=== PATIENT | male | born 2000 | race Caucasian/White ===

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

== ENCOUNTER 2022-03-04 08:43 | Observation (INO) | payer OTHER ==
--- OUTSIDE RECORDS SUMMARY | 2022-03-04 08:46 | XMS REPORT | Continuity of Care Document ---
:2000 Author Organization [facility] Address [address] [place] [address] [place] [id number] Care Team Providers Name Role Phone LAURIE Attending Clinician Unavailable LAURIE Admitting Clinician Unavailable Problems This patient has no known problems. Allergies, Adverse Reactions, Alerts This patient has no known allergies or adverse reactions. Medications This patient has no known medications. Procedures This patient has no known procedures. Encounters Start End Encounter Admission Attending Care Care Encounter Source Date/Time Date/Time Type Type Clinicians Facility Department ID 2022-01-18 2022-01-18 Outpatient NAMITA ROBBINS [id number] 04:52:00 04:52:00 HN [id number] da [facility] Program Results This patient has no known results.
[2022-03-04 09:26] LABS: Urine Blood Negative (Negative); Urine Glucose Negative (Negative); Urine Protein 1+ (Negative); Urine Specific Gravity >=1.030 (1.005-1.030); Urine pH 5.5 (5.0-7.0)
[2022-03-04] MEDS ORDERED: FAMOTIDINE 20 MG/2 ML VIAL IV ONE (09:29)
[2022-03-04] MEDS ORDERED: ONDANSETRON 4 MG/2 ML VIAL ONE (09:29)
[2022-03-04] MEDS ORDERED: NA CHLORIDE 0.9% 1,000 ML ONE (09:29)
[2022-03-04] MEDS ORDERED: FENTANYL CITR 100 MCG/2 ML ONE ×2 (09:29→18:13)
[2022-03-04 09:46] LABS: Absolute Lymphocytes (CBC) 2.3 K/uL (0.7-4.9); Hematocrit 40.7 % (39.6-49.0); Lymphocytes % 16.7 % (15.3-44.8); MCV 89.5 fL (80-100); RBC Red Blood Cell Count 4.55 M/uL (4.33-5.43)
[2022-03-04 10:04] LABS: SARS-CoV-2 Antigen Rapid Res Negative (Negative)
[2022-03-04 10:11] LABS: Albumin 4.5 g/dL (3.4-5.0); Bilirubin Total 0.6 mg/dL (0.2-1.0); Potassium 3.4 mmol/L (3.5-5.1); Protein, Total 7.8 g/dL (6.4-8.2)
--- NOTE | 2022-03-04 10:58 | RAD REPORT ---
EXAM DESCRIPTION: CT - Abdomen Pelvis W Contrast - 03/04/2022 10:36 am CLINICAL HISTORY: Abdominal pain COMPARISON: none. TECHNIQUE: Computed axial tomography of the abdomen pelvis was obtained. 100 cc Isovue-300 was admin istered intravenously. Oral contrast was not requested which limits evaluation of bowel and appendix All CT scans are performed using dose optimization technique as appropriate and may include automated exposure control or mA/KV adjustment according to patient size. FINDINGS: The liver, spleen, pancreas, adrenal and kidneys appear unremarkable. There is no evidence of diverticulitis. The appendix is enlarged and fluid-filled. Stranding within the adjacent fat. The appendix extends me dially from the cecum and then inferiorly. Small amount of ascites. IMPRESSION: Suppurative appendicitis
[2022-03-04] MEDS ORDERED: PIPERACIL/TAZO 3.375 GM VIAL IV ONE (11:35)
[2022-03-04] MEDS ORDERED: NA CHLORIDE 0.9% 100 ML ONE (11:35)
[2022-03-04] MEDS ORDERED: Ringers Lactate 1,000 ML IV ONE ×3 (11:35→20:06)
--- NOTE | 2022-03-04 12:25 | ER ---
Nurse's Notes [facility] Name: Vinicio Delgado Age: 21 yrs Sex: Male : 2000 Arrival Date: 03/04/2022 Time: 08:53 Bed 7 Private MD: Diagnosis: Unspecified acute appendicitis Presentation: 03/04 09:07 Chief complaint: Patient states: RLQ pain since 0030 this morning. Pt denies N/V/D. ld1 Coronavirus screen: At this time, the client does not indicate any symptoms associated with coronavirus-19. Ebola Screen: No symptoms or risks identified at this time. Initial Sepsis Screen: Does the patient meet any 2 criteria? No. Patient's initial sepsis screen is negative. Does the patient have a suspected source of infection? No. Patient's initial sepsis screen is negative. Risk Assessment: Do you want to hurt yourself or someone else? Patient reports no desire to harm self or others. Onset of symptoms was March 04, 2022. 09:07 Method Of Arrival: Ambulatory ld1 09:07 Acuity: CHIP 3 ld1 Triage Assessment: 09:08 General: Appears in no apparent distress. comfortable, Behavior is calm, cooperative, ld1 appropriate for age. Pain: Complains of pain in right lower quadrant Pain does not radiate. Pain currently is 4 out of 10 on a pain scale. at worst was 10 out of 10 on a pain scale. Quality of pain is described as sharp, shooting, Pain began suddenly, Is continuous. EENT: No signs and/or symptoms were reported regarding the EENT system. Neuro: Level of Consciousness is awake, alert, obeys commands, Oriented to person, place, time, situation. Cardiovascular: Capillary refill < 3 seconds Patient's skin is warm and dry. Respiratory: Airway is patent Respiratory effort is even, unlabored. GI: Abdomen is flat, non-distended, Reports lower abdominal pain, Patient currently denies diarrhea, nausea, vomiting. : No signs and/or symptoms were reported regarding the genitourinary system. Derm: No signs and/or symptoms reported regarding the dermatologic system. Musculoskeletal: No signs and/or symptoms reported regarding the musculoskeletal system. Historical: - Allergies: : No Known Allergies; ld1 - Home Meds: :08 None [Active]; ld1 - PMHx: 09:08 None; ld1 - PSHx: 09:08 None; ld1 - Immunization history:: Adult Immunizations up to date, Client reports having NOT received the Covid vaccine. - Social history:: Smoking status: Patient denies any tobacco usage or history of. Patient/guardian denies using alcohol. Screenin:10 Abuse screen: Denies threats or abuse. Denies injuries from another. Nutritional ld1 screening: No deficits noted. Tuberculosis screening: No symptoms or risk factors identified. Fall Risk None identified. Assessment: 09:10 Reassessment: See triage assessment. ld1 11:35 Reassessment: Patient appears in no apparent distress at this time. Patient and/or ld1 family updated on plan of care and expected duration. Pain level reassessed. Patient is alert, oriented x 3, equal unlabored respirations, skin warm/dry/pink. Patient denies pain at this time. Patient states feeling better. 17:11 GI: Bowel sounds present X 4 quads. Abd is soft Abdomen is tender to palpation in right ld1 lower quadrant. Vital Signs: 09:07 BP 124 / 71; Pulse 97; Resp 18; Temp 99.1(O); Pulse Ox 100% on R/A; Weight 65.77 kg; ld1 Height 6 ft. 0 in. (182.88 cm); Pain 4/10; 10:01 BP 113 / 63; Pulse 88; Resp 18; Pulse Ox 100% on R/A; Pain 0/10; ld1 11:35 BP 122 / 70; Pulse 80; Resp 18; Pulse Ox 100% on R/A; Pain 0/10; ld1 13:00 BP 116 / 67; Pulse 79; Resp 18; Pulse Ox 100% on R/A; Pain 0/10; ld1 13:35 BP 117 / 61; Pulse 62; Resp 18; Pulse Ox 99% on R/A; Pain 2/10; ld1 15:35 BP 120 / 52; Pulse 59; Resp 18; Pulse Ox 100% on R/A; ld1 09:07 Body Mass Index 19.67 (65.77 kg, 182.88 cm) ld1 ED Course: 08:53 Patient arrived in ED. am2 08:55 Minda Liu FNP-C [facility]. snw 08:55 Ar Garsia MD is Attending Physician. snw 08:57 Stephanie Dominguez, CARLOS is Primary Nurse. ld1 09:08 Triage completed. ld1 09:08 Arm band placed on right wrist. ld1 09:09 Inserted saline lock: 20 gauge in right antecubital area, using aseptic technique. [id number] Blood collected. 09:10 No provider procedures requiring assistance completed. ld1 09:10 Patient has correct armband on for positive identification. Placed in gown. Bed in low ld1 position. Call light in reach. Side rails up X2. Pulse ox on. NIBP on. Door closed. Noise minimized. Warm blanket given. 09:30 SARS RAPID Sent. ld1 09:30 Strep Sent. ld1 10:37 CT Abd/Pelvis - IV Contrast Only In Process Unspecified. EDMS 12:23 Xavi Santamaria MD is Hospitalizing Provider. snw 17:13 Patient admitted, IV remains in place. ld1 Administered Medications: 09:30 Drug: NS 0.9% 1000 ml Route: IV; Rate: 1 bolus; Site: right antecubital; ld1 10:08 Follow up: Response: No adverse reaction; IV Intake: 1000ml ld1 09:30 Drug: Pepcid (famotidine) 20 mg Route: IVP; Site: right antecubital; ld1 10:08 Follow up: Response: No adverse reaction ld1 09:30 Drug: Zofran (Ondansetron) 4 mg Route: IVP; Site: right antecubital; ld1 10:08 Follow up: Response: No adverse reaction ld1 09:30 Drug: fentaNYL (PF) 25 mcg Route: IVP; Site: right antecubital; ld1 10:07 Follow up: Response: No adverse reaction ld1 10:07 Follow up: Response: Pain is decreased; RASS: Alert and Calm (0) ld1 11:33 Drug: Zosyn (piperacillin-tazobactam) 3.375 grams Route: IVPB; Infused Over: 60 mins; ld1 Site: right antecubital; 11:33 Drug: Lactated Ringers Solution 1000 ml Route: IV; Rate: 150 ml/hr; Site: right ld1 antecubital; Medication: 09:10 VIS not applicable for this client. ld1 Intake: 10:08 IV: 1000ml; Total: 1000ml. ld1 Outcome: 12:24 Decision to Hospitalize by Provider. snw 17:11 Admitted to OR accompanied by nurse, via wheelchair, with chart, Report called to Tereza ld1 17:11 Condition: stable 17:11 Instructed on the need for admit. 17:13 Patient left the ED. ld1 Signatures: Dispatcher [employer] EDMinda Aviles, ELISABET-C [employer] PROTECTION MANAGER-Csnw Anne Heath am2 Stephanie Dominguez, RN RN ld1 Carolyn Vega7
--- NOTE | 2022-03-04 12:25 | EDPHYS ---
Physician Documentation [facility] Name: Vinicio Delgado Age: 21 yrs Sex: Male : 2000 Arrival Date: 03/04/2022 Time: 08:53 Bed 7 Private MD: ED Physician Ar Garsia HPI: 03/04 09:57 This 21 yrs old Male presents to ER via Ambulatory with complaints of Abdominal Pain. snw 09:57 The patient presents with abdominal pain in the lower abdomen, right lower quadrant. snw Onset: The symptoms/episode began/occurred suddenly, at 00:00, and became worse and became persistent. The symptoms do not radiate. Associated signs and symptoms: Pertinent positives: nausea. The symptoms are described as constant. Severity of pain: At its worst the pain was moderate in the emergency department the pain is unchanged. The patient has experienced similar episodes in the past, but today's symptoms are worse, more painful. The patient has not recently seen a physician. 09:59 Pt denies smoking, no prior surgeries, NPO post MN. snw Historical: - Allergies: 09:08 No Known Allergies; ld1 - Home Meds: 09:08 None [Active]; ld1 - PMHx: 09:08 None; ld1 - PSHx: 09:08 None; ld1 - Immunization history:: Adult Immunizations up to date, Client reports having NOT received the Covid vaccine. - Social history:: Smoking status: Patient denies any tobacco usage or history of. Patient/guardian denies using alcohol. ROS: 09:56 Constitutional: Negative for fever, chills, and weight loss, Eyes: Negative for injury, snw pain, redness, and discharge, ENT: Negative for injury, pain, and discharge, Neck: Negative for injury, pain, and swelling, Cardiovascular: Negative for chest pain, palpitations, and edema, Respiratory: Negative for shortness of breath, cough, wheezing, and pleuritic chest pain, Back: Negative for injury and pain, : Negative for injury, bleeding, discharge, and swelling, MS/Extremity: Negative for injury and deformity, Skin: Negative for injury, rash, and discoloration, Neuro: Negative for headache, weakness, numbness, tingling, and seizure, Psych: Negative for depression, anxiety, suicide ideation, homicidal ideation, and hallucinations. 09:56 Abdomen/GI: Positive for abdominal pain, nausea, Negative for vomiting, diarrhea, constipation. Exam: 09:56 Back: No spinal tenderness. No costovertebral tenderness. Full range of motion. snw Skin: Warm, dry with normal turgor. Normal color with no rashes, no lesions, and no evidence of cellulitis. MS/ Extremity: Pulses equal, no cyanosis. Neurovascular intact. Full, normal range of motion. Neuro: Awake and alert, GCS 15, oriented to person, place, time, and situation. Cranial nerves II-XII grossly intact. Motor strength 5/5 in all extremities. Sensory grossly intact. Cerebellar exam normal. Normal gait. Psych: Awake, alert, with orientation to person, place and time. Behavior, mood, and affect are within normal limits. 09:56 Constitutional: This is a well developed, well nourished patient who is awake, alert, and in no acute distress. Head/Face: Normocephalic, atraumatic. Eyes: Pupils equal round and reactive to light, extra-ocular motions intact. Lids and lashes normal. Conjunctiva and sclera are non-icteric and not injected. Cornea within normal limits. Periorbital areas with no swelling, redness, or edema. ENT: Nares patent. No nasal discharge, no septal abnormalities noted. Tympanic membranes are normal and external auditory canals are clear. Oropharynx with redness, no swelling, or masses, exudates, or evidence of obstruction, uvula midline. Mucous membranes moist. Poor dentition Neck: Trachea midline, no thyromegaly or masses palpated, and no cervical lymphadenopathy. Supple, full range of motion without nuchal rigidity, or vertebral point tenderness. No Meningismus. Chest/axilla: Normal chest wall appearance and motion. Nontender with no deformity. No lesions are appreciated. Cardiovascular: Regular rate and rhythm with a normal S1 and S2. No gallops, murmurs, or rubs. Normal PMI, no JVD. No pulse deficits. Respiratory: Lungs have equal breath sounds bilaterally, clear to auscultation and percussion. No rales, rhonchi or wheezes noted. No increased work of breathing, no retractions or nasal flaring. 09:56 Abdomen/GI: Inspection: abdomen appears normal, Bowel sounds: diminished, Palpation: moderate abdominal tenderness, in the suprapubic area and right lower quadrant, Indicators: Magaña's sign is positive, Rovsing's sign is positive. Vital Signs: 09:07 BP 124 / 71; Pulse 97; Resp 18; Temp 99.1(O); Pulse Ox 100% on R/A; Weight 65.77 kg; ld1 Height 6 ft. 0 in. (182.88 cm); Pain 4/10; 10:01 BP 113 / 63; Pulse 88; Resp 18; Pulse Ox 100% on R/A; Pain 0/10; ld1 11:35 BP 122 / 70; Pulse 80; Resp 18; Pulse Ox 100% on R/A; Pain 0/10; ld1 13:00 BP 116 / 67; Pulse 79; Resp 18; Pulse Ox 100% on R/A; Pain 0/10; ld1 13:35 BP 117 / 61; Pulse 62; Resp 18; Pulse Ox 99% on R/A; Pain 2/10; ld1 15:35 BP 120 / 52; Pulse 59; Resp 18; Pulse Ox 100% on R/A; ld1 09:07 Body Mass Index 19.67 (65.77 kg, 182.88 cm) ld1 MDM: 08:56 Patient medically screened. snw 12:24 Data reviewed: vital signs, nurses notes. Data interpreted: Pulse oximetry: on room air snw is 100 %. Interpretation: normal. Counseling: I had a detailed discussion with the patient and/or guardian regarding: the historical points, exam findings, and any diagnostic results supporting the discharge/admit diagnosis, lab results, radiology results, the need for further work-up and treatment in the hospital. Physician consultation: Xavi Santamaria MD was called at 11:25, was contacted at 11:25, regarding admission, to the medical/surgical unit. Special discussion:. 03/04 09:15 Order name: CBC with Diff; Complete Time: 09:53 snw 03/04 09:15 Order name: CMP; Complete Time: 10:23 snw 03/04 09:15 Order name: Lipase; Complete Time: 10:23 snw 03/04 09:15 Order name: SARS RAPID; Complete Time: 10:23 snw 03/04 09:15 Order name: Strep; Complete Time: 10:23 snw 03/04 09:26 Order name: Urine Dipstick-Ancillary; Complete Time: 09:36 EDMS 03/04 09:15 Order name: CT Abd/Pelvis - IV Contrast Only; Complete Time: 11:16 snw 03/04 10:20 Order name: Throat Culture EDMS 03/04 09:15 Order name: IV Saline Lock; Complete Time: 09:16 snw 03/04 09:15 Order name: Labs collected and sent; Complete Time: 09:30 snw 03/04 09:15 Order name: Urine Dipstick-Ancillary (obtain specimen); Complete Time: 09:30 snw Administered Medications: 09:30 Drug: NS 0.9% 1000 ml Route: IV; Rate: 1 bolus; Site: right antecubital; ld1 10:08 Follow up: Response: No adverse reaction; IV Intake: 1000ml ld1 09:30 Drug: Pepcid (famotidine) 20 mg Route: IVP; Site: right antecubital; ld1 10:08 Follow up: Response: No adverse reaction ld1 09:30 Drug: Zofran (Ondansetron) 4 mg Route: IVP; Site: right antecubital; ld1 10:08 Follow up: Response: No adverse reaction ld1 09:30 Drug: fentaNYL (PF) 25 mcg Route: IVP; Site: right antecubital; ld1 10:07 Follow up: Response: No adverse reaction ld1 10:07 Follow up: Response: Pain is decreased; RASS: Alert and Calm (0) ld1 11:33 Drug: Zosyn (piperacillin-tazobactam) 3.375 grams Route: IVPB; Infused Over: 60 mins; ld1 Site: right antecubital; 11:33 Drug: Lactated Ringers Solution 1000 ml Route: IV; Rate: 150 ml/hr; Site: right ld1 antecubital; Disposition: 18:46 Co-signature as Attending Physician, Ar Garsia MD. rn Disposition Summary: 03/04/22 12:24 Hospitalization Ordered Hospitalization Status: Inpatient Admission snw Provider: Xavi Santamaria Location: Telemetry/MedSurg (observation) snw Condition: Stable snw Problem: new snw Symptoms: are unchanged snw Bed/Room Type: Standard snw Room Assignment: snw Diagnosis - Unspecified acute appendicitis snw Forms: - Medication Reconciliation Form snw - SBAR form snw Signatures: Dispatcher [employer] EDMS Minda Liu, MANAGER LEAN-C MANAGER LEAN-Csnw Ar Garsia MD MD rn Dibbern, Lauren, RN RN ld1 Corrections: (The following items were deleted from the chart) 09:57 09:56 Constitutional: This is a well developed, well nourished patient who is awake, snw alert, and in no acute distress. Head/Face: Normocephalic, atraumatic. Eyes: Pupils equal round and reactive to light, extra-ocular motions intact. Lids and lashes normal. Conjunctiva and sclera are non-icteric and not injected. Cornea within normal limits. Periorbital areas with no swelling, redness, or edema. ENT: Nares patent. No nasal discharge, no septal abnormalities noted. Tympanic membranes are normal and external auditory canals are clear. Oropharynx with no redness, swelling, or masses, exudates, or evidence of obstruction, uvula midline. Mucous membranes moist. Neck: Trachea midline, no thyromegaly or masses palpated, and no cervical lymphadenopathy. Supple, full range of motion without nuchal rigidity, or vertebral point tenderness. No Meningismus. Chest/axilla: Normal chest wall appearance and motion. Nontender with no deformity. No lesions are appreciated. Cardiovascular: Regular rate and rhythm with a normal S1 and S2. No gallops, murmurs, or rubs. Normal PMI, no JVD. No pulse deficits. Respiratory: Lungs have equal breath sounds bilaterally, clear to auscultation and percussion. No rales, rhonchi or wheezes noted. No increased work of breathing, no retractions or nasal flaring. snw 17:43 09:56 Constitutional: This is a well developed, well nourished patient who is awake, snw alert, and in no acute distress. Head/Face: Normocephalic, atraumatic. Eyes: Pupils equal round and reactive to light, extra-ocular motions intact. Lids and lashes normal. Conjunctiva and sclera are non-icteric and not injected. Cornea within normal limits. Periorbital areas with no swelling, redness, or edema. ENT: Nares patent. No nasal discharge, no septal abnormalities noted. Tympanic membranes are normal and external auditory canals are clear. Oropharynx with redness, no swelling, or masses, exudates, or evidence of obstruction, uvula midline. Mucous membranes moist. Neck: Trachea midline, no thyromegaly or masses palpated, and no cervical lymphadenopathy. Supple, full range of motion without nuchal rigidity, or vertebral point tenderness. No Meningismus. Chest/axilla: Normal chest wall appearance and motion. Nontender with no deformity. No lesions are appreciated. Cardiovascular: Regular rate and rhythm with a normal S1 and S2. No gallops, murmurs, or rubs. Normal PMI, no JVD. No pulse deficits. Respiratory: Lungs have equal breath sounds bilaterally, clear to auscultation and percussion. No rales, rhonchi or wheezes noted. No increased work of breathing, no retractions or nasal flaring. snw
[2022-03-04] MEDS ORDERED: ACETAMINOPHEN 500 MG TAB PO PRN (16:52)
[2022-03-04] MEDS ORDERED: ONDANSETRON 4 MG/2 ML VIAL IV PRN ×2 (16:52→19:55)
[2022-03-04] MEDS ORDERED: MORPHINE 4 MG/ML SYR IV PRN (16:52)
[2022-03-04] MEDS ORDERED: CEFOXITIN 1 GM in NA CHLORIDE 0.9% 50 ML IVPB SCH (18:00)
[2022-03-04] MEDS ORDERED: SUCCINYLCHOLINE 20 MG/ML (10 ML) IV ONE (18:11)
[2022-03-04] MEDS ORDERED: propofoL 200 MG/20 ML VIAL IV ONE (18:13)
[2022-03-04] MEDS ORDERED: MIDAZOLAM HCL 2 MG/2 ML INJ ONE (18:13)
[2022-03-04] MEDS ORDERED: ROCURONIUM 50 MG/5 ML VIAL IV ONE (18:13)
--- NOTE | 2022-03-04 18:37 | P.HP ---
Date of Service: 03/04/22 PC: This 21-year-old male presented to the emergency room with severe right lower quadrant abdominal pain for diagnosis and treat HPC: Patient awoke at 1:00 this morning. Noticed he was having abdominal pain. Went to the restroom, but got no relief. Over the course of next few hours pain intensified, and gradually got to the point where he was having pain when he walks. No nausea or vomiting. PSHx: Negative PMHx: Negative Social Hx: No known allergies Sys R: No cough, wheeze, shortness of breath. No chest pain or palpitations. O/E: Awake alert vital signs are stable HEENT: Within normal limits Chest: Air entry equal bilaterally Abd: Tender with guarding in the right lower quadrant [place]: Intact Data: Elevated white cell count, CT scans supports clinical diagnosis of acute abdomen with appendicitis Impression: Acute appendicitis Plan: I will taken the operating room for laparoscopic possible open appende ctomy. The risks of this procedure have been discussed. The possibility of bleeding, infection, injury to bowel blood vessels and surrounding structures was outlined. The possible need for an open and or further surgeries and procedures was discussed. He understands and wants us to proceed. His mom and dad are here.
[2022-03-04] MEDS ORDERED: GLYCOPYRROLATE 0.2 MG/ML SYR ONE (19:43)
--- NOTE | 2022-03-04 19:54 | P.OP ---
Preoperative diagnosis: Acute abdomen with appendicitis Postoperative diagnosis: The same Primary procedure: Laparoscopic appendectomy Secondary procedure: Tap block Anesthesia: General Estimated blood loss: 10 cc Specimen: 1 appendix Operative Technique: The patient brought the operating room and placed supine on the table. After the induction of adequate general endotracheal anesthesia, there the abdomen was prepped with a DuraPrep solution, he was draped in usual aseptic manner. A subumbilical incision was made. This brought down through the skin and subcutaneous tissue. The Visiport was used to enter the peritoneal cavity and created pneumoperitoneum to approximately 12 mmHg. Under direct vision a 5 mm 5 mm trocar was placed in the right upper quadrant and another 5 mm trocar between the pubic bone and the umbilicus. Attention was turned towards the right lower quadrant. With the patient placed in Trendelenburg and the table tilted to the left we will visualize the right lower quadrant. We could see an acutely inflamed appendix in the area of the cecum. Grasping the body of the appendix were able to trace it back to the junction of the cecum with the appendix itself. A window was made in the mesentery of the appendix. Having open this up we were now able to place a linear stapling device across the base of the cecum where the appendix takes off and the instrument was fired. A vascular reload allowed us to take down the vasculature to the appendix. The specimen was now placed into an Endo Catch and brought out through the umbilical trocar site. Attention was turned back towards the right lower quadrant. There was gently irrigated with a saline solution. The effluent was aspirated from the peritoneal cavity. With a 5 mm camera in the lower midline we were now able to do a tap block with 0.25% Marcaine 6 cc be injected on both sides. Attention was turned towards the umbilicus. The defect area was closed using the Endo Close and an absorbable suture. With the patient placed back in the neutral position for the OR table, the pneumoperitoneum was collapsed, the trochars removed, and william applied to the skin. At the end of the procedure he was in a stable condition when sent to the recovery room. Needle sponge instrument count were correct. No drains were placed. Complications: None Transferred to: Recovery Room Condition: Good
[2022-03-04] MEDS ORDERED: MORPHINE 2 MG/ML SYR IV SCH (20:00)
[2022-03-04] MEDS ORDERED: NEOSTIGMINE 1 MG/ML -10 ML VIAL ONE (20:00)
[2022-03-04] MEDS: HYDROMORPHONE HCL 1 MG/ML INJ ONE ×3 (20:14→20:27)
[2022-03-04] MEDS ORDERED: KETOROLAC 30 MG/ML INJ ONE (20:20)
[2022-03-04] MEDS ORDERED: MORPHINE 2 MG/ML SYR IV PRN (21:12)
[2022-03-04] MEDS: Ringers Lactate 1,000 ML IV SCH (21:50)
[2022-03-04 23:10] VITALS: BMI 21.4
[2022-03-04] MEDS: HYDROCODONE/APAP 7.5/325 MG TAB PO PRN (23:14)
[2022-03-05 05:03] VITALS: O2SAT 99
[2022-03-05] MEDS: Ringers Lactate 1,000 ML IV SCH (06:07)
[2022-03-05 06:25] LABS: Absolute Lymphocytes (CBC) 1.8 K/uL (0.7-4.9); Hematocrit 33.4 % (39.6-49.0); Lymphocytes % 20.8 % (15.3-44.8); MCV 90.2 fL (80-100)
[2022-03-05 06:31] LABS: Potassium 3.7 mmol/L (3.5-5.1)
[2022-03-05] MEDS: HYDROCODONE/APAP 7.5/325 MG TAB PO PRN ×2 (07:29→13:03)
[2022-03-05 11:39] VITALS: BP 116/61; TEMP 98.1
== END 2022-03-05 13:38 | disposition home or self-care (01) ==
LOC: ER 08:43 → ERHOLD 12:30 → 2ND 20:46
PROVIDERS: ADMIT Surgery; ATTEND Surgery
PROC: 0DTJ4ZZ Resection of Appendix, Percutaneous Endoscopic Approach (ICD-10-PCS; principal; 2022-03-04 17:45)
DX: K35.80 Unspecified acute appendicitis (principal); Z28.310 Unvaccinated for COVID-19; Z20.822 Contact with and (suspected) exposure to COVID-19
CPT/HCPCS: 87070; 85025 ×2; 80048; 36415; 87081; 81003; 83690; 80053; 74177; 94010; 96375; 96374; 99285; 87811; 44970; Q9967; J2704; J2710; J0330; J2543; J2250; J3010 ×2; J1170; J7120 ×4; J7030; J0694; J2405; 88304; G0378